=== PATIENT | male | born 1960 | race Caucasian/White ===

== ENCOUNTER 2016-05-06 06:40 | Observation (INO) | payer BC ==
[~2016-05-06] VITALS: Ht 165.1 cm; Wt 85.9 kg
[~2016-05-06 06:40] MED LIST: ATIVAN0.5 MG PO; BAYER CHEWABLE81 MG PO; BETAPACE 80 MG80 MG PO; CRESTOR20 MG PO; GEMFIBROZIL600 MG PO; LISINOPRIL5 MG GT; LISINOPRIL5 MG PO; LOPRESSOR25 MG PO; PLAVIX75 MG PO; PROZAC20 MG PO; ZOCOR10 MG PO
[2016-05-06 07:40] LABS: BASOPHILS 0.6 % (0.0-2.0); EOSINOPHILS 0 % (0-7); HEMATOCRIT 38.9 % (42.0-54.0); HEMOGLOBIN 13.9 g/dL (13.5-17.5); IMMATURE GRANULOCYTES 0.2 % (0-5); LYMPHOCYTES 30.3 % (15-50); MCHC 35.7 g/dL (31.0-37.0); MCV 86.6 fL (80.0-100.0); MEAN PLATELET VOLUME 8.9 fL (7.4-10.4); MONOCYTES 16.1 % (2-11); NEUTROPHILS 52.8 % (40-80); PLATELET COUNT 375 10x3/uL (130-400); RBC 4.49 10x6/uL (4.20-6.10); WBC 5.3 10x3/uL (4.8-10.8)
[2016-05-06 07:56] LABS: ALBUMIN 3.7 g/dL (3.4-5.0); ANION GAP 17.1 mmol/L (8-16); BILIRUBIN - TOTAL 0.29 mg/dL (0.2-1.3); CALCIUM 8.7 mg/dL (8.5-10.1); CARBON DIOXIDE 22.9 mmol/L (21.0-32.0)
[2016-05-06 10:24] LABS: APPEARANCE HAZY (CLEAR); BILIRUBIN NEGATIVE (NEGATIVE); COLOR YELLOW (YELLOW); GLUCOSE NEGATIVE (NEGATIVE); KETONE NEGATIVE (NEGATIVE); LEUKOCYTE ESTERASE NEGATIVE (NEGATIVE); NITRITE NEGATIVE (NEGATIVE); PROTEIN NEGATIVE (NEGATIVE); UROBILINOGEN NORMAL (NORMAL)
[2016-05-06 13:31] LABS: CREATININE - SERUM 1.5 mg/dL (0.6-1.3)
--- NOTE | 2016-05-06 15:45 | NUR ---
ALERT AND ORIENTED X4. ARRIVE TO ROOM VIA WHEELCHAIR FROM ER. DENIES PAIN OR SOB. START LR ORDERED TO INFUSE THROUGH RT AC IV. DENIES DIARRHEA FOR 2 HOURS. TOLERATED SOLIDS PER PATIENT. CONTINUE ADMISSION PROCESS. SCDs ON. ENCOURAGE TO USE URINAL FOR DOCUMENTATION. BED LOCKED AND LOW. CALL LIGHT IN REACH. TWO SIDERAILS UP.
[2016-05-06] MEDS ORDERED: ATARAX 25 MG TA25 MG PO (15:49)
[2016-05-06 15:55] VITALS: BP 116/77
[2016-05-06 16:20] VITALS: BP 116/77; BMI 22.3
--- NOTE | 2016-05-06 20:00 | NUR ---
RECEIVED IN BEDROOM. LAYING IN BED EYES OPEN. SOCIALIZING WITH . DENIES PAIN AT THIS TIME. ALERT AND ORIENTED X3. CALL LIGHT IN REACH.
[2016-05-06 20:29] VITALS: BP 121/65
--- NOTE | 2016-05-06 21:00 | NUR ---
UP WALKING WITH IN HALLWAY IN UNIT.
[2016-05-07 01:50] VITALS: BP 121/65
[2016-05-07 05:40] VITALS: BP 108/64
[2016-05-07 07:47] VITALS: BP 103/66
[2016-05-07 10:44] VITALS: Ht 165.1 cm; Wt 85.9 kg
[2016-05-07 11:45] VITALS: BP 125/76
[2016-05-07 13:19] LABS: BASOPHILS 0.7 % (0.0-2.0); EOSINOPHILS 0.1 % (0-7); HEMOGLOBIN 12.5 g/dL (13.5-17.5); IMMATURE GRANULOCYTES 0.2 % (0-5); LYMPHOCYTES 25.8 % (15-50); MCH 30.6 pg (26.0-34.0); MCHC 34.7 g/dL (31.0-37.0); MCV 88.2 fL (80.0-100.0); MEAN PLATELET VOLUME 8.9 fL (7.4-10.4); MONOCYTES 11.4 % (2-11); NEUTROPHILS 61.8 % (40-80); PLATELET COUNT 324 10x3/uL (130-400); RBC 4.08 10x6/uL (4.20-6.10)
[2016-05-07 13:20] LABS: WBC 8.3 10x3/uL (4.8-10.8)
[2016-05-07 13:47] LABS: CALCIUM 8.2 mg/dL (8.5-10.1); CARBON DIOXIDE 24.8 mmol/L (21.0-32.0); CHLORIDE - SERUM 102 mmol/L (98-107); GLUCOSE 98 mg/dL (74-106); POTASSIUM - SERUM 3.6 mmol/L (3.5-5.1); SODIUM 136 mmol/L (136-145)
[2016-05-07 13:57] LABS: CALC OSMOLALITY 272 mosm/kg (275-300); CREATININE - SERUM 0.8 mg/dL (0.6-1.3); UREA NITROGEN 14 mg/dL (7-18); eGFR NON AFRICAN AMERICAN > 90 mL/min (90-120)
--- NOTE | 2016-05-07 14:52 | NUR ---
PT ASSESSMENT COMPLETED NO DISTRESS OBSERVED CALL LIGHT IN REACH SRX2 BED LOW AND LOCKED PT AMBULATORY WITH NO ASSITANCE NEEDED IV DC'D CATH INTACT AND DISCHARGE PAPERS REVIEWED PT VERBALIZED UNDERSTANDING WHEEL CHAIR ESCORT PROVIDED TO PT TO POV WITH DAUGHTER AT SIDE
--- NOTE | 2016-07-04 08:43 | DS ---
PATIENT:ELIZABETH EUCEDA :58 MEDICAL RECORD: [id number] DISCHARGE SUMMARY ADMISSION DATE: 05/06/16 DISCHARGE DATE: 05/07/16 DATE OF ADMISSION: 05/06/2016 DATE OF DISCHARGE: 05/07/2016 ADMITTING DIAGNOSES: Nausea and vomiting, diarrhea, gastroenteritis, acute kidney injury, coronary artery disease, and hypertension. HOSPITAL COURSE: This is a gentleman of Dr. Awad's admitted with diagnoses as outlined above. Details are well-outlined in the history of the present illness, H&P. All events, lab procedures, diagnostic testing are well documented in the records. The patient was admitted, started on IV fluid hydration. Serum creatinine on admission was 2. It resolved with acute kidney injury resolved, serum creatinine down to 0.8 today. He is tolerating a regular diet. PHYSICAL EXAMINATION: GENERAL: He is awake and alert. VITAL SIGNS: Stable, afebrile. HEENT: The head is normocephalic, atraumatic. Pupils equal, round and reactive to light and accommodation. Extraocular muscles are intact. Canals are patent. Mucous membranes are moist. NECK: Supple, no jugular vein distention, no carotid bruit, no gross adenopathy. LUNGS: Clear to auscultation anteriorly and posteriorly. Breath sounds equal and nonlabored. CARDIOVASCULAR: Cardiac rate and rhythm is regular. No murmur, S3 or rub is appreciated. ABDOMEN: Soft, nontender, nondistended. No hepatosplenomegaly. EXTREMITIES: No clubbing, cyanosis or edema. PSYCHIATRIC: He has a pleasant affect. NEUROLOGIC: No focal deficits. LABORATORY DATA: White count 8, hemoglobin 12.5, platelets 324. Sodium 136, potassium 3.6, chloride 102, CO2 24.8, BUN 14, serum creatinine 0.8. He is stable for dismissal home. Please refer to med rec. Follow up with Dr. Awad in 1 week. DISCHARGE DIAGNOSES: Nausea and vomiting, diarrhea, gastroenteritis, acute kidney injury, coronary artery disease, hypertension. Acute kidney injury resolved, gastroparesis, resolved. Greater than 30 minutes was spent on this discharge. TRANSINT:[id number] Voice Confirmation ID: [id number] DOCUMENT ID: [id number] 07/03/2016, Edited per request of Charlene Carson RN, dmm. Dictated By: CHARLENE HANIG RN I have interviewed/examined the above patient and agree with these documented findings. DISCHARGE SUMMARY REPORT [id number] ELIZABETH EUCEDA BARTON MD at 0843 CC: [id number] DICTATION DATE: 05/07/16 1401 PAINT LINE OPERATOR: 05/08/16 0218 DIS IN 05/07/16 [facility] [address] [place] [address]
== END 2016-05-07 15:06 | disposition home or self-care (01) ==
LOC: D.ER 06:40 → D.M2 13:02 → OBSVTIME 13:02 → D.M2 13:02
PROVIDERS: Emergency Medicine; ADMIT Family Medicine Adult Medicine
DX: N17.9 Acute kidney failure, unspecified (principal); A08.4 Viral intestinal infection, unspecified; I10 Essential (primary) hypertension; F17.200 Nicotine dependence, unspecified, uncomplicated; E78.5 Hyperlipidemia, unspecified; G47.30 Sleep apnea, unspecified

== ENCOUNTER → 2017-04-17 11:19 | Outpatient (CLI) | payer OTHER ==
[2016-05-07 10:44] VITALS: BMI 31.2
[~2017-04-17 11:19] MED LIST changes: +ATARAX 25 MG TA25 MG PO
== END | disposition home or self-care (01) ==
LOC: D.RAD 11:00
DX: Z02.71 Encounter for disability determination (principal)

== ENCOUNTER 2019-01-21 16:46 | Emergency (ER) | payer SELFPAY ==
[~2019-01-21] VITALS: Ht 165.1 cm; Wt 77.3 kg
[2019-01-21 16:48] VITALS: Ht 165.1 cm; Wt 77.3 kg
[2019-01-21 17:48] LABS: APTT 31.1 SECONDS (22.8-39.4); INR 1.05 (0.85-1.17); PROTIME 13.2 SECONDS (11.6-15.0)
[2019-01-21 17:56] LABS: ANION GAP 8.8 mmol/L (8-16); CALCIUM 8.4 mg/dL (8.5-10.1); CARBON DIOXIDE 29.6 mmol/L (21.0-32.0); CREATININE - SERUM 1.1 mg/dL (0.6-1.3); POTASSIUM - SERUM 3.4 mmol/L (3.5-5.1)
[2019-01-21 18:03] LABS: ALBUMIN 2.9 g/dL (3.4-5.0); BILIRUBIN - TOTAL 0.33 mg/dL (0.2-1.3); PROTEIN - SERUM 6.6 g/dL (6.4-8.2)
[2019-01-21 18:04] LABS: BASOPHILS 0.1 % (0-2); EOSINOPHILS 0.8 % (0-7); HEMATOCRIT 39.4 % (42.0-54.0); HEMOGLOBIN 13.6 g/dL (13.5-17.5); IMMATURE GRANULOCYTES 0.9 % (0-5); LYMPHOCYTES 17.7 % (15-50); MCH 30.2 pg (26.0-34.0); MCHC 34.5 g/dL (31.0-37.0); MCV 87.4 fL (80.0-100.0); MEAN PLATELET VOLUME 9.1 fL (7.4-10.4); MONOCYTES 4.6 % (2-11); NEUTROPHILS 75.9 % (40-80); PLATELET COUNT 455 10x3/uL (130-400); RBC 4.51 10x6/uL (4.20-6.10); RDW 13.7 % (11.5-14.5); WBC 11.7 10x3/uL (4.8-10.8)
[2019-01-21 19:30] VITALS: BP 151/94
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
== END 2019-01-21 19:30 | disposition other institution (70) ==
LOC: D.ER 16:46
PROVIDERS: Family Medicine
DX: S02.92XA Unspecified fracture of facial bones, initial encounter for closed fracture (principal); V49.9XXA Car occupant (driver) (passenger) injured in unspecified traffic accident, initial encounter; Y93.9 Activity, unspecified; Y92.9 Unspecified place or not applicable; I25.2 Old myocardial infarction

== ENCOUNTER → 2019-01-26 15:21 | Outpatient (CLI) | payer SELFPAY ==
[2019-01-21 16:48] VITALS: BMI 28.3
== END | disposition home or self-care (01) ==
LOC: D.RT 15:21
DX: S02.413A LeFort III fracture, initial encounter for closed fracture (principal); S02.30XA Fracture of orbital floor, unspecified side, initial encounter for closed fracture